=== PATIENT | male | born 1985 | race Caucasian/White ===

== ENCOUNTER 2019-04-23 22:03 | Observation (INO) | payer OTHER ==
[2019-04-24] MEDS ORDERED: LIDOCAINE 5% TOPICAL PATCH TP ONE (00:12)
[2019-04-24] MEDS ORDERED: ACETAMINOPHEN 500 MG TABLET (FP) PO ONE (00:13)
--- NOTE | 2019-04-24 00:13 | PDOC ---
History of Present Illness - General Chief Complaint: Back Pain Stated Complaint: LOWER BACK PAIN Time Seen by Provider: 04/24/19 00:12 - History of Present Illness Initial Comments: 04/24/19 00:53 34 yo M no PMH presenting with low back pain. Patient states that he was helping move a pool table a week ago, had acute onset of low back pain at that time. No loss of sensation or weakness, but does have occasional radiation down both of his legs. Has taken acetaminophen with some relief, but still has ongoing pain. Here today due to ongoing pain; has not worsened over time. Past History - Past Medical History Allergies/Adverse Reactions: Allergies Allergy/AdvReac Type Severity Reaction Status Date / Time almond Allergy Verified 04/23/19 22:09 donis Allergy Verified 04/23/19 22:09 shellfish derived Allergy Verified 04/23/19 22:10 Home Medications: Ambulatory Orders NK [No Known Home Medication] 04/24/19 COPD: No - Psycho Social/Smoking Cessation Hx Smoking History: Never smoked Hx Alcohol Use: No Review of Systems - Review of Systems Comments:: 04/24/19 03:27 GENERAL/CONSTITUTIONAL: denies fever, chills, diaphoresis, generalized weakness , malaise, loss of appetite, weight change HEAD, EYES, EARS, NOSE AND THROAT: denies rhinorrhea, nasal congestion, throat pain, throat swelling, difficulty swallowing, mouth swelling, ear pain, eye pain , visual changes NEUROLOGIC: denies headache, focal weakness or paresthesias, dizziness, unsteady gait, seizure, mental status changes, bladder or bowel incontinence CARDIOVASCULAR: denies chest pain, syncope, palpitations, irregular heart rate, lightheadedness, peripheral edema RESPIRATORY: denies cough, shortness of breath, dyspnea with exertion, orthopnea , wheezing, stridor, hemoptysis GASTROINTESTINAL: denies abdominal pain, abdominal distension, nausea, vomiting , diarrhea, constipation, melena, hematochezia GENITOURINARY: denies dysuria, frequency, urgency, hesitancy, hematuria, flank pain, genital pain MUSCULOSKELETAL: endorses low back pain. Denies myalgia, arthralgia, joint swelling, back pain, neck pain SKIN: denies rash, itching, pallor HEMATOLOGIC/IMMUNOLOGIC: denies easy bleeding, easy bruising, lymphadenopathy, frequent infections ENDOCRINE: denies unexplained weight gain, unexplained weight loss, heat intolerance, cold intolerance PSYCHIATRIC: denies anxiety, depression, suicidal or homicidal ideation, hallucinations. *Physical Exam - Vital Signs Last Vital Signs Temp Pulse Resp BP Pulse Ox 98.2 F 66 18 121/65 99 04/23/19 22:07 04/23/19 22:07 04/23/19 22:07 04/23/19 22:07 04/23/19 22:07 Medical Decision Making - Medical Decision Making 04/24/19 01:34 Concern for possible disc herniation vs muscle strain. - pain medication - CT lumbar spine 04/24/19 03:34 CT lumbar spine with L3-L4 disc bulge mildly narrowing the central canal, small left central superiorly extruded hearniation at L4-L5 which narrows the central canal and severely narrows the left lateral recess, possibly compressing exiting left L4 nerve root and descending left L5 nerve root. Will admit for MRI. Discharge - Discharge Information Problems reviewed: Yes Clinical Impression/Diagnosis: Back pain, Disc herniation Condition: Stable Disposition: HOME - Admission Yes - Follow up/Referral Referrals: Prashant Francis MD [Primary Care Provider] - - Patient Discharge Instructions - Post Discharge Activity
[2019-04-24] MEDS ORDERED: METHOCARBAMOL 500 MG TABLET PO ONE (00:15)
[2019-04-24] MEDS ORDERED: LIDOCAINE 5% TOPICAL PATCH ONE (00:16)
[2019-04-24] MEDS ORDERED: ACETAMINOPHEN 325 MG TABLET (FP) ONE (00:16)
[2019-04-24] MEDS ORDERED: METHOCARBAMOL 500 MG TABLET ONE (00:16)
[2019-04-24] MEDS ORDERED: KETOROLAC TROMETHAMINE 30 MG/1 ML VIAL IM ONE (00:51)
--- NOTE | 2019-04-24 01:01 | PDOC ---
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 Pain radiates down the back to the legs. But mostly it is in the low back. Pt states that the pain is not getting better so he came in. - Physicial Exam PE: 04/24/19 00:59 Pt is sitting up straight and not moving due to the pain. Pt has normal vitals. Pt is afebrile No rashes HEENT normal Pt has clear lungs Heart RRR No midline stepoffs in the spine. L spine tenderness (mild) with palpation. Pt has paraspinal spasm. - Medical Decision Making 04/24/19 04:48 CBC and chem are normal; pt has +severe narrowing at L4 and he will be admitted for MRI and neuro eval 04/24/19 04:55 Patient Name: MALACHI FLORES THIS IS A PRELIMINARY REPORT FROM [facility] DATE OF SERVICE: 2019-04-24 00:53:37 IMAGES: [id number] EXAM: LUMBAR SPINE CT W/O CONTRAST HISTORY: Low back pain COMPARISON: None. FINDINGS: No fracture, subluxation or suspicious bone lesions. L3-4 disc demonstrates a small disc bulge which mildly narrows the central canal. There is a small left central superiorly extruded herniation at L4-5 which mildly narrows the central canal and severely narrows the left lateral recess, possibly compressing the exiting left L4 nerve root and descending left L5 nerve root with left lateral osteophytic ridging at this level mildly narrows the left neural foramen. No other significant disc pathology identified. IMPRESSION: Small L3/4 disc bulge which mildly narrow the central canal. Small left central circulation at L4/5 disc herniation which mildly narrows the central canal and severely narrows the left lateral recess as well as left lateral osteophytic ridging which mildly narrows the left neural foramen. The exiting left L4 and left L5 nerve roots compressed. Follow-up with MRI is suggested.
[2019-04-24] MEDS ORDERED: KETOROLAC TROMETHAMINE 30 MG/1 ML VIAL ONE (01:24)
[2019-04-24] MEDS ORDERED: morphine CARPU-JECT 4 MG/1 ML DISP.SYRIN IVPUSH ONE (03:49)
[2019-04-24] MEDS ORDERED: morphine SULFATE 4 MG/ML VIAL ONE (04:04)
[2019-04-24 04:15] LABS: BASO % 1.5 % (0-2.0); EOS % 9.6 % (0-4.5); HEMATOCRIT 41.7 % (35.4-49); HEMOGLOBIN 14.5 GM/dL (11.7-16.9); LYMPH % 39.9 % (8-40); MCH 31.5 pg (25.7-33.7); MCHC 34.7 g/dl (32.0-35.9); MEAN CELL VOLUME 90.7 fl (80-96); MEAN PLT VOLUME 7.9 fl (7.5-11.1); MONO % 7.6 % (3.8-10.2); NEUT % 41.4 % (42.8-82.8); PLATELET COUNT 268 K/MM3 (134-434); RDW 12.7 % (11.9-15.9); WHITE BLOOD COUNT 5.6 K/mm3 (4.0-10.0)
[2019-04-24 04:43] LABS: ALBUMIN 3.8 g/dl (3.4-5.0); BILIRUBIN,TOTAL 0.8 mg/dL (0.2-1); BLOOD UREA NITROGEN 22.2 mg/dL (7-18); CALCIUM 8.8 mg/dL (8.5-10.1); CREATININE 0.8 mg/dL (0.55-1.3); POTASSIUM 4.4 mmol/L (3.5-5.1); TOT PROT 7.4 g/dl (6.4-8.2)
[2019-04-24] MEDS ORDERED: ACETAMINOPHEN 650 MG/20.3 ML ORAL SOLUTION (CUPS) PO PRN ×2 (05:12→06:52)
--- NOTE | 2019-04-24 05:14 | HP ---
CHIEF COMPLAINT: Low back pain PCP: Dr. Prashant Francis HISTORY OF PRESENT ILLNESS: Pt is a 34 y/o M with no PMH who presents to ED with complaint of 1 week of low back pain. He was moving a pool table and experienced sharp low back pain at that time, which has been unremitting and constant for the last week. Pain prevents him from performing normal activities. He states he is able to walk with some difficulty. Reportedly, he had pain going down his legs. At the time of my interview, he denied have shooting pain. Complaint is of band like pain of the low back, worse with movement and twisting of the torso. Denies numbness/ tingling of the groin, denies bowel/bladder changes. No weakness. He has had similar episodes of low back pain years ago and has improved with PT. ER course was notable for: (1) CT showing L4L5 stenosis (2) (3) Recent Travel: denies PAST MEDICAL HISTORY: none PAST SURGICAL HISTORY: none Social History: Smoking: denies Alcohol: denies Drugs: denies Allergies almond Allergy (Verified 04/23/19 22:09) donis Allergy (Verified 04/23/19 22:09) shellfish derived Allergy (Verified 04/23/19 22:10) HOME MEDICATIONS: Home Medications Medication Instructions Recorded NK [No Known Home Medication] 04/24/19 REVIEW OF SYSTEMS CONSTITUTIONAL: Absent: fever, chills, diaphoresis, generalized weakness, malaise, loss of appetite, weight change HEENT: Absent: rhinorrhea, nasal congestion, throat pain, throat swelling, difficulty swallowing, mouth swelling, ear pain, eye pain, visual changes CARDIOVASCULAR: Absent: chest pain, syncope, palpitations, irregular heart rate, lightheadedness , peripheral edema RESPIRATORY: Absent: cough, shortness of breath, dyspnea with exertion, orthopnea, wheezing, stridor, hemoptysis GASTROINTESTINAL: Absent: abdominal pain, abdominal distension, nausea, vomiting, diarrhea, constipation, melena, hematochezia GENITOURINARY: Absent: dysuria, frequency, urgency, hesitancy, hematuria, flank pain, genital pain MUSCULOSKELETAL: back pain Absent: myalgia, arthralgia, joint swelling, , neck pain SKIN: Absent: rash, itching, pallor HEMATOLOGIC/IMMUNOLOGIC: Absent: easy bleeding, easy bruising, lymphadenopathy, frequent infections ENDOCRINE: Absent: unexplained weight gain, unexplained weight loss, heat intolerance, cold intolerance NEUROLOGIC: Absent: headache, focal weakness or paresthesias, dizziness, unsteady gait, seizure, mental status changes, bladder or bowel incontinence PSYCHIATRIC: Absent: anxiety, depression, suicidal or homicidal ideation, hallucinations. PHYSICAL EXAMINATION Vital Signs - 24 hr 04/23/19 04/24/19 22:07 04:32 Temperature 98.2 F 97.8 F Pulse Rate 66 Pulse Rate [ 82 Left Radial] Respiratory 18 20 Rate Blood Pressure 121/65 Blood Pressure 129/67 [Left Arm] O2 Sat by Pulse 99 99 Oximetry (%) Gen: NAD, AAOx3 HEENT: NCAT, EOMI Neck: supple, no jvd Cardio: rrr, normal s1s2, no mrg Pulm: cta b/l Abd: soft, nontender, nondistended Back: no spinal or paraspinal tenderness to palpation Ext: No weakness, distal pulses strong Straight leg raise with nonradiating low back pain L>R Laboratory Results - last 24 hr 04/24/19 04/24/19 04:03 04:03 WBC 5.6 RBC 4.60 Hgb 14.5 Hct 41.7 MCV 90.7 MCH 31.5 MCHC 34.7 RDW 12.7 Plt Count 268 MPV 7.9 Absolute Neuts (auto) 2.3 Neutrophils % 41.4 L Lymphocytes % 39.9 Monocytes % 7.6 Eosinophils % 9.6 H Basophils % 1.5 Nucleated RBC % 0 Sodium 139 Potassium 4.4 Chloride 108 H Carbon Dioxide 25 Anion Gap 6 L BUN 22.2 H Creatinine 0.8 Est GFR (CKD-EPI)AfAm 133.20 Est GFR (CKD-EPI)NonAf 114.93 Random Glucose 93 Calcium 8.8 Total Bilirubin 0.8 AST 29 ALT 27 Alkaline Phosphatase 89 Total Protein 7.4 Albumin 3.8 ASSESSMENT/PLAN: Pt is a 34 y/o M with no PMH who presents to ED with complaint of low back pain. Being admitted to Obs for lumbar stenosis. Lumbar stenosis -initial CT read concerning for severe stenosis -pain control -MRI -PT DVT PPx with Hep SubQ Visit type - Emergency Visit Emergency Visit: Yes ED Registration Date: 04/24/19 Care time: The patient presented to the Emergency Department on the above date and was hospitalized for further evaluation of their emergent condition. - New Patient This patient is new to me today: Yes Date on this admission: 04/24/19 - Critical Care Critical Care patient: No ATTENDING PHYSICIAN STATEMENT I saw and evaluated the patient. I reviewed the resident's note and discussed the case with the resident. I agree with the resident's findings and plan as documented. SUBJECTIVE: OBJECTIVE: ASSESSMENT AND PLAN:
[2019-04-24 05:42] VITALS: BMI 22.4
[2019-04-24] MEDS: HEPARIN NA (PORCINE) 5,000 UNITS/ML 1ML VIAL SQ SCH ×3 (06:00→22:14)
--- NOTE | 2019-04-24 11:10 | PN ---
Progress Note, Physician - Current Medication List Current Medications: Active Medications Acetaminophen (Tylenol Oral Solution -) 650 mg PO Q6H PRN PRN Reason: FEVER OR PAIN Heparin Sodium (Porcine) (Heparin -) 5,000 unit SQ TID [facility] Last Admin: 04/24/19 06:00 Dose: Not Given Miscellaneous (Lidoderm Patch Removal) 1 each MC DAILY@2200 [facility] - Objective Vital Signs: Vital Signs Temperature 98.4 F 04/24/19 05:26 Pulse Rate 56 L 04/24/19 05:26 Respiratory Rate 16 04/24/19 05:26 Blood Pressure 96/57 L 04/24/19 05:26 O2 Sat by Pulse Oximetry (%) 100 04/24/19 05:26 Cardiovascular: Yes: Regular Rate and Rhythm Respiratory: Yes: Regular, CTA Bilaterally Gastrointestinal: Yes: Normal Bowel Sounds, Soft Musculoskeletal: Yes: Back Pain, Other (POS LEG RAISES) Edema: No Labs: CBC, BMP 04/24/19 04:03 04/24/19 04:03 Problem List - Problems (1) Disc herniation Assessment/Plan: MRI NS CONSULT STEROIDS AND PAIN MEDS Code(s): [id number] -
[2019-04-24 13:57] LABS: HEMATOCRIT 39.6 % (35.4-49); MCH 31.5 pg (25.7-33.7); MCHC 35.3 g/dl (32.0-35.9); MEAN CELL VOLUME 89.3 fl (80-96); MEAN PLT VOLUME 7.7 fl (7.5-11.1); PLATELET COUNT 246 K/MM3 (134-434); RBC 4.43 M/mm3 (4.00-5.60); RDW 12.3 % (11.9-15.9); WHITE BLOOD COUNT 4.8 K/mm3 (4.0-10.0)
[2019-04-24] MEDS ORDERED: MORPHINE SULFATE 2 MG/ML VIAL IVPUSH PRN (14:16)
[2019-04-24 14:20] LABS: BLOOD UREA NITROGEN 18.2 mg/dL (7-18); CREATININE 1.1 mg/dL (0.55-1.3); POTASSIUM 4.1 mmol/L (3.5-5.1)
[2019-04-24] MEDS: DEXAMETHASONE SOD PHOSPHATE 10 MG/1 ML VIAL IVPUSH SCH ×2 (15:59→22:13)
[2019-04-24] MEDS ORDERED: LIDOCAINE PATCH REMOVAL MC SCH (22:00)
[2019-04-24] MEDS: PANTOPRAZOLE 40 MG TABLET PO SCH (22:13)
[2019-04-25] MEDS: DEXAMETHASONE SOD PHOSPHATE 10 MG/1 ML VIAL IVPUSH SCH ×2 (02:11→09:43)
[2019-04-25] MEDS: HEPARIN NA (PORCINE) 5,000 UNITS/ML 1ML VIAL SQ SCH (05:24)
[2019-04-25] MEDS: PANTOPRAZOLE 40 MG TABLET PO SCH (09:43)
--- NOTE | 2019-04-25 10:01 | PN ---
Progress Note (short form) - Note Progress Note: NEUROSURGERY CONSULT DICTATED Pt examined CT/MRI reviewed History obtained c/o 2 week h/o low back pain. 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 LBP 2 weeks ago which improved after taking tylenol and rest. Moving a pool table and experienced sharp recurrent low back pain x 1 week. Pain to B hips at times. No sciatica, leg weakness/numbness/tingling or B/B dysfunction. PE; AF, VSS HEENT- NC/AT; Neck- supple; Cor-RRR; Lungs- CTA B; Abd- benign; Ext- no sign of DVT CN- intact; Motor- 5/5 without drift; Sensation- intact LT/vibration; DTR- 2+ Back- tender over LS junction B; + SLR on L at [address]- sacralized L5, L4-5 DDD with soft tissue density L L4-5; minimal lat recess stenosis MRI- sacralized L5 segment; L4-5 DDD; L L4-5 paracentral HNP with superiorly migrating disc fragment in lat recess and L L5 > L4 root impingement L4-5 DDD/HNP Pharmacological tx, trial of neurontin PT for truncal stabilization/core strengthening; pt should continue such dailt exercises Lumbar support when OOB Transition to medrol dose pack Given pain only and no neurological deficit, would favor medical tx only for now Pain management injection could be considered if persistent pain Observe for LE weakness/numbness and change in bowel/bladder function Pt adivsed that due to sacralized L5 segment and L4-5 HNP, there is likely mechanical instability and future need for L4-5 fusion is to be expected Pt would like to avoid surgery, which is reasonable given he has no focal deficit
--- NOTE | 2019-04-25 10:21 | PN ---
Progress Note, Physician History of Present Illness: improved with steroids - Current Medication List Current Medications: Active Medications Acetaminophen (Tylenol Oral Solution -) 650 mg PO Q6H PRN PRN Reason: FEVER OR PAIN Last Admin: 04/24/19 15:59 Dose: 650 mg Dexamethasone Sodium Phosphate (Decadron Injection -) 10 mg IVPUSH Q8H-IV [facility] Last Admin: 04/25/19 09:43 Dose: 10 mg Gabapentin (Neurontin -) 300 mg PO TID [facility] Heparin Sodium (Porcine) (Heparin -) 5,000 unit SQ TID [facility] Last Admin: 04/25/19 05:24 Dose: Not Given Miscellaneous (Lidoderm Patch Removal) 1 each [facility] DAILY@2200 [facility] Last Admin: 04/24/19 22:14 Dose: 1 each Morphine Sulfate (Morphine Sulfate) 1 mg IVPUSH Q4H PRN PRN Reason: PAIN LEVEL 6-10 Pantoprazole Sodium (Protonix -) 40 mg PO DAILY [facility] Last Admin: 04/25/19 09:43 Dose: 40 mg - Objective Vital Signs: Vital Signs Temperature 97.6 F 04/25/19 05:55 Pulse Rate 66 04/25/19 05:55 Respiratory Rate 16 04/25/19 05:55 Blood Pressure 115/65 04/25/19 05:55 O2 Sat by Pulse Oximetry (%) 98 04/25/19 01:37 Cardiovascular: Yes: Regular Rate and Rhythm Respiratory: Yes: Regular, CTA Bilaterally Musculoskeletal: Yes: Back Pain Neurological: Yes: Alert, Oriented Labs: CBC, BMP 04/24/19 13:25 04/24/19 13:25 Problem List - Problems (1) Disc herniation Assessment/Plan: MRI NS CONSULT STEROIDS AND PAIN MEDS Code(s): [id number] -
[2019-04-25 12:47] VITALS: BP 115/62; PULSE 89; TEMP 98.1
[2019-04-25] MEDS ORDERED: GABAPENTIN 300 MG CAPSULE PO SCH (14:00)
--- NOTE | 2019-04-25 14:13 | CONS ---
DATE OF CONSULTATION: DATE OF DICTATION: 04/25/2019 REQUESTING PHYSICIAN: King Coffey MD CONSULTING PHYSICIAN: Michael King MD, Neurosurgery CHIEF COMPLAINT: Low back pain. HISTORY OF PRESENT ILLNESS: The patient is a 34-year-old right-handed male with no significant past medical history, who was complaining of mid lower back pain for a couple of years. His most recent episode was about 2 weeks ago. 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 He had felt increasing back pain that Friday, but by Friday his pain had subsided with rest and taking Tylenol. It started a week ago, however, lifting a pool table, and felt increasing lower back pain again. The pain was sharp and shooting in the back. At worst, it radiates down to the hips but not down to his legs. There is no leg weakness, numbness, or tingling. He has no bowel or bladder dysfunction. The pain is worse with exertion and movements. Rest helps it somewhat, even though the pain has gotten severe again. He was seen in the emergency room for treatment and was admitted for pain management. He was put on IV steroids. Presently, pain is rated at 8 on a 1-10 scale. Past medical history is noncontributory except for lower back pain. MEDICATION: Tylenol as needed at home. There is no known drug allergy. He does have SHELLFISH and some FOOD ALLERGIES. Review of systems is otherwise negative for other major constitutional, head and neck, cardiovascular, pulmonary, gastrointestinal, genitourinary, endocrinological, neurological, or psychological problem except for the above. FAMILY HISTORY: Not significant for any diabetes or any spinal problems. PHYSICAL EXAMINATION: General: The patient is awake and alert, oriented x4. Vital Signs: Temperature is 97.6, blood pressure 115/65, pulse rate of 66, O2 saturation is 98% on room air. HEENT: Normocephalic, atraumatic. Anicteric. Neck: Supple with no lymphadenopathy, no carotid bruit. Coronary: Regular rhythm. Lungs: Clear bilaterally. Abdomen: Benign. Extremities: No signs of DVT. Neurologic: He is awake and alert, oriented. Cranial nerves examination is intact, 2-12. Motor examination shows 5/5 strength, including bilateral quadriceps, iliopsoas, extensor hallucis longus, tibialis anterior, foot inversion and eversion, and gastrocnemius. Sensory exam is intact to light touch and vibratory sensation. Deep tendon reflexes are 2+ throughout and there is no pathological long tract sign. Back: Lumbar-sacral junction tenderness bilaterally. He has positive straight-leg raise on left side at 40 degrees. Gait is not tested, for safety reasons. Cerebellar exam demonstrates intact [id number] examination. There is no tremor. Laboratory examination demonstrated white blood cell count 4.8, hemoglobin 14, platelet count 246,000. Serum sodium is 140, potassium 4.1, BUN 18, creatinine 1.1. CT scan of the lumbar spine demonstrated a sacralized L5 segment. There is mild L4-5 stenosis with soft tissue density impinging the lateral recess. MRI of the lumbar spine demonstrated degenerative space narrowing at L4-5 with a sacralized L5 segment. There is a left-sided L4-5 paracentral disk protrusion with herniation with a superiorly migrating disk fragment. There is impingement of the left L5, greater than L4, nerve root. There is no marked stenosis. IMPRESSION: Sacralized L5 segment with associated left L4-5 disk herniation, with resultant mechanical lower back pain. RECOMMENDATIONS: The patient presents with a 2-week history of recurrent lower back pain. His pain recurred a week ago after it initially improved. He was lifting something heavy and it caused increasing lower back pain. He has no weakness or numbness of lower extremities nor any bowel or bladder dysfunction. Neurological examination is nonfocal except for positive straight-leg raise on the left side at 40 degrees. MRI demonstrated L4-5 disk herniation with a superiorly migrating disk fragment. The patient has no significant L4-L5 radiculopathy at this time. He has received IV steroid and his pain is somewhat better. He could be transitioned over to oral steroid on Medrol Dosepak and could pursue a course of physical therapy with an emphasis on modality treatment and truncal stabilization exercises. He should use lumbar support whenever he is up and about. Because of the sacralized L5 segment and the L4-5 degenerative disk disease with extruded disk herniation, the patient will likely require spinal fusion in the future for mechanical instability. The patient would like to avoid an operation, which is understandable, given his relatively young age and active lifestyle. He understands the nature of the spinal fusion procedure, if he were to experience further exacerbation or recurrence of the disk herniation. Once again, he would like to avoid an operation. The pros and cons of treatment approaches were discussed with patient at bedside. Should his pain persist, of course a pain management injection could be considered as well. I did add Neurontin 300 mg p.o. t.i.d. as a pharmacological adjunctive treatment of his lumbar spine condition. MICHAEL KING M.D. ANA/[id number]
== END 2019-04-25 12:15 | disposition left against medical advice (07) ==
LOC: JERFT 22:03 → INTOOBSV 04-24 03:41 → JERBED 04-24 03:41 → J7W 04-24 05:12
PROVIDERS: ADMIT Internal Medicine; ATTEND Family Medicine
PROC: 3E033NZ Introduction of Analgesics, Hypnotics, Sedatives into Peripheral Vein, Percutaneous Approach (ICD-10-PCS; principal; 2019-04-24)
PROC: 3E0233Z Introduction of Anti-inflammatory into Muscle, Percutaneous Approach (ICD-10-PCS; 2019-04-24)
DX: M51.26 Other intervertebral disc displacement, lumbar region (principal)
CPT/HCPCS: 36415; 72131-TC; 72148-TC; 80048; 80053; 85025; 85027; 99285-25; G0378; J1100

== ENCOUNTER 2020-06-17 15:30 | Emergency (ER) | payer OTHER ==
[2020-06-17 15:51] VITALS: TEMP 98.1; BMI 22.7
[2020-06-17] MEDS ORDERED: IBUPROFEN 400 MG TABLET (FP) PO ONE ×2 (16:54→16:57)
[2020-06-17] MEDS ORDERED: LIDOCAINE 5% TOPICAL PATCH TP ONE (16:54)
[2020-06-17] MEDS ORDERED: LIDOCAINE 5% TOPICAL PATCH ONE (16:57)
[2020-06-17] MEDS ORDERED: CYCLOBENZAPRINE HCL 10 MG TABLET (FP) PO ONE (17:03)
[2020-06-17] MEDS ORDERED: CYCLOBENZAPRINE HCL 10 MG TABLET (FP) ONE (17:07)
[2020-06-17 19:19] VITALS: BP 120/84; PULSE 73
[2020-06-17] MEDS ORDERED: LIDOCAINE PATCH REMOVAL MC SCH (22:00)
== END 2020-06-17 19:19 | disposition short-term general hospital (02) ==
LOC: JER 15:30
DX: S12.301A Unspecified nondisplaced fracture of fourth cervical vertebra, initial encounter for closed fracture (principal)
CPT/HCPCS: 70450-TC; 71046-TC-FY; 72125-TC; 73000-TC-LT-FY; 99285-25

== ENCOUNTER 2024-06-03 13:01 | Emergency (ER) | payer OTHER ==
[2024-06-03 13:06] VITALS: BP 114/62; PULSE 95; RESP 18; TEMP 97.9; BMI 25.0
[2024-06-03] MEDS ORDERED: ALBUTEROL SO4 2.5/IPRATROPIUM 0.5 INH SOL 3 ML VIAL.NEB. NEB ONE (14:23)
[2024-06-03] MEDS: ALBUTEROL SO4 2.5/IPRATROPIUM 0.5 INH SOL 3 ML VIAL.NEB. NEB ONE (14:26)
== END 2024-06-03 15:19 | disposition home or self-care (01) ==
LOC: JERFT 13:01
PROC: 3E0F7GC Introduction of Other Therapeutic Substance into Respiratory Tract, Via Natural or Artificial Opening (ICD-10-PCS; principal; 2024-06-03)
DX: R06.02 Shortness of breath (principal); R09.81 Nasal congestion; R05.9 Cough, unspecified; R50.9 Fever, unspecified; J00 Acute nasopharyngitis [common cold]
CPT/HCPCS: 0241U-QW; 71046-TC-FY; 99284-25